=== PATIENT | female | born 1965 | race Caucasian/White ===

== ENCOUNTER 2016-08-01 22:50 | Emergency (ER) | payer MEDICAID ==
[2016-08-02 02:10] LABS: BASOPHILS 0.2 % (0.0-2.0); EOSINOPHILS 1.9 % (0-7); HEMATOCRIT 41.9 % (36.0-48.0); HEMOGLOBIN 14.5 g/dL (12-16); IMMATURE GRANULOCYTES 0.2 % (0-5); LYMPHOCYTES 31.9 % (15-50); MCH 33.3 pg (26.0-34.0); MCHC 34.6 g/dL (31.0-37.0); MCV 96.3 fL (80.0-100.0); MEAN PLATELET VOLUME 10.7 fL (7.4-10.4); MONOCYTES 9.2 % (2-11); NEUTROPHILS 56.6 % (40-80); RBC 4.35 10x6/uL (4.00-5.40); RDW 13.7 % (11.5-14.5); WBC 9.4 10x3/uL (4.8-10.8)
[2016-08-02 02:16] LABS: PLATELET COUNT 250 10x3/uL (130-400)
[2016-08-02 02:18] LABS: ALBUMIN 3.6 g/dL (3.4-5.0); ANION GAP 17.6 mmol/L (8-16); BILIRUBIN - TOTAL 0.19 mg/dL (0.2-1.3); CALCIUM 9.8 mg/dL (8.5-10.1); CARBON DIOXIDE 26.8 mmol/L (21.0-32.0); CREATININE - SERUM 0.9 mg/dL (0.6-1.3); POTASSIUM - SERUM 3.4 mmol/L (3.5-5.1)
== END 2016-08-02 02:57 | disposition home or self-care (01) ==
LOC: D.ER 22:50
PROVIDERS: Surgery
DX: J20.9 Acute bronchitis, unspecified (principal); R19.7 Diarrhea, unspecified; R06.00 Dyspnea, unspecified; E87.6 Hypokalemia; J44.9 Chronic obstructive pulmonary disease, unspecified; F32.9 Major depressive disorder, single episode, unspecified; K21.9 Gastro-esophageal reflux disease without esophagitis

== ENCOUNTER → 2016-08-13 07:41 | Outpatient (CLI) | payer MEDICAID | END | disposition home or self-care (01) | LOC: D.NM 08-12 08:30 | DX: R10.9 Unspecified abdominal pain (principal) ==

== ENCOUNTER → 2016-08-26 12:01 | Outpatient (CLI) | payer MEDICAID | END | disposition home or self-care (01) | LOC: D.LABREF 12:01 | PROVIDERS: Internal Medicine Gastroenterology | DX: R19.7 Diarrhea, unspecified (principal) ==

== ENCOUNTER → 2016-09-30 07:27 | Outpatient (CLI) | payer MEDICAID | END | disposition home or self-care (01) | LOC: D.RAD 07:27 | DX: R12 Heartburn (principal); R11.2 Nausea with vomiting, unspecified ==

== ENCOUNTER → 2016-12-01 11:35 | Outpatient (CLI) | payer MEDICAID | END | disposition home or self-care (01) | LOC: D.NM 11:35 | DX: R10.9 Unspecified abdominal pain (principal); R11.2 Nausea with vomiting, unspecified ==

== ENCOUNTER 2018-02-28 04:23 | Emergency (ER) | payer MEDICAID ==
[~2018-02-28] VITALS: Ht 162.6 cm; Wt 94.1 kg
[2018-02-28 04:27] VITALS: Ht 162.6 cm; Wt 94.1 kg
[2018-02-28] MEDS ORDERED: GABAPENTIN100 MG PO (04:29)
[2018-02-28] MEDS ORDERED: CLARITIN 10 MG10 MG PO (04:29)
[2018-02-28] MEDS ORDERED: LIPITOR10 MG (04:30)
[2018-02-28] MEDS ORDERED: GEODON40 MG PO (04:31)
[2018-02-28] MEDS ORDERED: RANITIDINE HCL150 M1 (04:32)
[2018-02-28] MEDS ORDERED: SPIRIVA RESPIMAT4 G1 (04:32)
[2018-02-28] MEDS ORDERED: BREO ELLIPTA 11 EACH (04:32)
[2018-02-28] MEDS ORDERED: FLUTICASONE PRO16 GM (04:33)
[2018-02-28] MEDS ORDERED: XANAX1 MG PO (04:34)
[2018-02-28 04:52] LABS: APPEARANCE CLEAR (CLEAR); BILIRUBIN NEGATIVE (NEGATIVE); COLOR YELLOW (YELLOW); GLUCOSE NEGATIVE (NEGATIVE); KETONE NEGATIVE (NEGATIVE); NITRITE NEGATIVE (NEGATIVE); PROTEIN NEGATIVE (NEGATIVE); UROBILINOGEN NORMAL (NORMAL)
[2018-02-28] MEDS ORDERED: VALTREX1000 MG PO (05:25)
[2018-02-28] MEDS ORDERED: HYDROCODON-ACE1 EAC7 PO (05:25)
[2018-02-28 05:34] VITALS: BP 126/72
== END 2018-02-28 05:36 | disposition home or self-care (01) ==
LOC: D.ER 04:23
PROVIDERS: Family Medicine
DX: B02.9 Zoster without complications (principal); J44.9 Chronic obstructive pulmonary disease, unspecified; J45.909 Unspecified asthma, uncomplicated; F17.200 Nicotine dependence, unspecified, uncomplicated

== ENCOUNTER → 2018-04-07 13:49 | Outpatient (CLI) | payer OTHER ==
[2018-02-28 04:27] VITALS: BMI 35.6
[~2018-04-07 13:49] MED LIST: BREO ELLIPTA 11 EACH; CLARITIN 10 MG10 MG PO; FLUTICASONE PRO16 GM; GABAPENTIN100 MG PO; GEODON40 MG PO; HYDROCODON-ACE1 EAC7 PO; LIPITOR10 MG; RANITIDINE HCL150 M1; SPIRIVA RESPIMAT4 G1; VALTREX1000 MG PO; XANAX1 MG PO
== END | disposition home or self-care (01) ==
LOC: D.RT 03-16 14:00 → D.RAD 03-16 15:00 → D.RT 13:49
DX: Z02.71 Encounter for disability determination (principal)

== ENCOUNTER → 2019-07-13 09:19 | Outpatient (CLI) | payer OTHER ==
[2018-02-28 04:27] VITALS: BMI 35.6
== END | disposition home or self-care (01) ==
LOC: D.RT 09:19
PROVIDERS: ATTEND Pediatrics
DX: Z02.71 Encounter for disability determination (principal)